=== PATIENT | female | born 1950 | race Caucasian/White ===

== ENCOUNTER 2016-06-23 16:57 | Emergency (ER) | payer MEDICARE ==
--- NOTE | 2016-06-23 18:09 | DIAGNOSTIC IMAGING REPORT ---
PROCEDURE: XR CHEST 1 VIEW INDICATION: CHEST PAIN TECHNIQUE: Portable AP view 05:33 p.m. COMPARISON: Chest x-ray 02/24/2013. FINDINGS: Lungs are clear. Heart and mediastinum are normal. Left shoulder arthroplasty. IMPRESSION: 1. Negative chest.
--- NOTE | 2016-06-23 20:28 | ED NURSING NOTES ---
Clinical Report - Nurses [facility] [address] [place] [address] 06/23/2016 17:03 Patient: JAS ALEMAN TRIAGE Triage time 1751 PM. Acuity: LEVEL 2. Chief Complaint: CHEST PAIN and DISCOMFORT. Alert. No acute distress. ANISA COMA SCORE: Anisa Coma Scale: 15- eyes open spontaneously (4); best verbal response- oriented x 4 (5); best motor response- obeys commands (6). --17:21 Norma Coelho R.N. 17:06 06/23/16. BP: 159/75 (regular adult cuff) taken on the right arm, via an automated monitor, while lying. HR: 71. RR: 16. O2 saturation: 96%. Temp: 98.6 F (oral). Pain level now: 07/31. --17:21 Norma Coelho R.N. Weight: 87.9 kg stated. Height/Length: 62 inches Per Patient. BMI: 35.5. --17:08 Norma Coelho R.N. Medications Multivitamins Oral. Omeprazole Oral. --17:09 Norma Coelho R.N. Aspirin Oral. --17:20 Norma Coelho R.N. Calcium + D Oral. --18:19 Norma Coelho R.N. Neurontin Oral. --18:20 Norma Coelho R.N. Simvastatin Oral. --18:20 Norma Coelho R.N. The following entry was struck by Norma Coelho R.N., 18:19 (06/23/16) Reason - other. <<STRICKEN ENTRY-- HydrOXYzine HCl Oral, 4x a day as needed. --17:09 Norma Coelho R.N. --END STRIKE>>. Allergies Darvon. Morphine Sulfate. Shrimp. --17:09 Norma Coelho R.N. Medication/allergy information source: the patient. --17:21 Norma Coelho R.N. History Arrived by private vehicle. Historian: patient and family. Accompanied by family. Primary physician (Dr. Lisa). ( Pt states that has been feeling "chest pain for the past 2- 3 weeks, comes and goes with SOB and heavy feeling in my arms and my body" Today at around 2 pm it started again more "pressure like in my mid chest and has continued, this time around hurts more than the other times" did experience some dizziness yesterday. Pt denies fevers, cough, being sick. Here for further evaluation). This is a recurrent problem. Symptoms are intermittent and still present (2- 3 weeks). She has had difficulty breathing. No sweating episodes, nausea, vomiting, fever or cough. 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 PAST MEDICAL HX: Immunizations: up-to-date. The patient has had a hysterectomy. SOCIAL HX: Former smoker, end date 1988. No alcohol use or drug use. No infectious disease exposure. ABUSE ASSESSMENT: No report of abuse. SELF HARM ASSESSMENT: A self harm assessment was performed. The patient answered "no" to the question "Do you have thoughts of harming or killing yourself?" and "Have you recently had thoughts about harming or killing others?". FALL RISK ASSESSMENT: Fall risk assessment completed. No fall risk identified. NUTRITIONAL RISK ASSESSMENT: The nutritional risk assessment revealed no deficiencies. FUNCTIONAL ASSESSMENT: Functional assessment: no impairments noted. LEARNING NEEDS ASSESSMENT: The learning needs assessment revealed no barriers. SKIN INTEGRITY ASSESSMENT: Skin integrity risk assessment completed. No skin integrity risk identified. --17:21 Norma Coelho R.N. PROBLEMS: Depression. Reflux. --17:12 Norma Coelho R.N. ADDITIONAL SURGERIES: Appendectomy. Cholecystectomy. Hysterectomy. --17:12 Norma Coelho R.N. Shoulder Surgery. --17:20 Norma Coelho R.N. Interventions ID band on patient. --17:21 Norma Coelho R.N. PHYSICAL ASSESSMENT To room via wheelchair. GENERAL / NEURO / PSYCH: Alert. Oriented X 4. HEENT: Mucous membranes are pink. RESPIRATORY: Respirations not labored. Chest nontender. Breath sounds within normal limits. CVS: Heart sounds within normal limits. Pulses within normal limits. Capillary refill less than 2 seconds. GI / : Abdomen soft and nontender. EXTREMITIES: No lower extremity edema. SKIN: Skin is warm and dry. Normal skin turgor. Skin is non-tender. --17:23 Norma Coelho R.N. NURSING PROGRESS NOTES 17:18 06/23/2016 Site #1 started via IV in the right antecubital space with an 20g angiocath; one attempt. Blood drawn: rainbow set. Labeled in the presence of the patient and sent to the lab. --17:23 Norma Coelho R.N. The initial plan of care for this patient has been created This plan of care was discussed with the patient and family. tread cutter, pulse oximeter and NIBP monitor placed on patient. Patient ID band checked for patient name and birthdate: patient confirmed. Blood samples drawn from the right antecubital space IV site by nurse per protocol ; labeled in presence of the patient and sent to lab: rainbow set. Patient gowned. Warming measures: blanket applied. Reassurance given. Two patient identifiers checked. Call light placed in reach. Side rails up x 1. Bed placed in lowest position. Brakes of bed on. --17:24 Norma Coelho R.N. EKG time: (1707 PM). EKG was performed by a tech and shown to the ED physician. --17:29 Norma Coelho R.N. Cardiac rhythm: normal sinus rhythm. tread cutter, pulse oximeter and NIBP monitor placed on patient. Reassurance given. The patient is calm and resting quietly. RESPIRATORY: Denies difficulty breathing. Call light placed in reach. Side rails up. --17:52 Norma Coelho R.N. 17:30 06/23/16. BP: 144/59. HR: 74. RR: 14 (regular and unlabored). O2 saturation: 94%. Pain level now: 6/10. --17:52 Norma Coelho R.N. 18:00 06/23/16. BP: 132/67. HR: 73. RR: 20. O2 saturation: 99%. Pain level now: 0/10. --18:21 Norma Coelho R.N. Cardiac rhythm: normal sinus rhythm. tread cutter, pulse oximeter and NIBP monitor placed on patient. Reassurance given. The patient is calm and resting quietly. Overall patient status is improved- she states feels better. RESPIRATORY: Denies difficulty breathing. CVS: Denies chest pain. Two patient identifiers checked. Call light placed in reach. Bed placed in lowest position. --18:21 Norma Coelho R.N. 19:23 06/23/16. BP: 153/82. HR: 71. RR: 14. O2 saturation: 96%. Pain level now: 0/10. --19:25 Norma Coelho R.N. Cardiac rhythm: sinus tachycardia. tread cutter, pulse oximeter and NIBP monitor placed on patient. Reassurance given. ( Pt is having episodes of SVT, MD Joel aware, pt asymptomatic, denies any CP or SOB. Will monitor). Call light placed in reach. --19:25 Norma Coelho R.N. 20:49 06/23/2016 Metoprolol PO Capsules 25 mg given. Allergies verified and confirmed 5 rights. --20:49 Norma Coelho R.N. DISPOSITION / DISCHARGE 20:36 06/23/2016 Site #1 removed upon discharge. Catheter intact. Manual pressure, pressure dressing, bandaid and bandage applied. --20:51 Norma Coelho R.N. Cardiac rhythm: normal sinus rhythm. Departure time: 2055 PM. Condition at departure: improved and stable. The goals identified in the patient's plan of care were met. No learning barriers present. Discharge instructions provided and reviewed with the patient. Reviewed medication(s) side effects, precautions, dosing and course information. Prescription(s) given to the patient. Patient verbalized understanding. Written instructions provided in Tajik. The patient was discharged by the physician. She was discharged home and accompanied by spouse. She left the Emergency Department ambulatory and via private vehicle. Spouse driving. FALL RISK ASSESSMENT: Fall risk assessment completed. No fall risk identified. --20:53 Norma Coelho R.N. 20:45 06/23/16. BP: 116/54. HR: 87. RR: 14. O2 saturation: 97%. Temp: 98.3 F (oral). Pain level now: 0/10. --20:53 Norma Coelho R.N. Locked/Released at 06/23/2016 22:40 by Norma Coelho R.N.
--- NOTE | 2016-06-23 20:28 | ED NURSING NOTES ---
Clinical Report - Nurses [facility] [address] [place] [address] 06/23/2016 17:03 Patient: JAS ALEMAN TRIAGE Triage time 1751 PM. Acuity: LEVEL 2. Chief Complaint: CHEST PAIN and DISCOMFORT. Alert. No acute distress. ANISA COMA SCORE: Anisa Coma Scale: 15- eyes open spontaneously (4); best verbal response- oriented x 4 (5); best motor response- obeys commands (6). --17:21 Norma Coelho R.N. 17:06 06/23/16. BP: 159/75 (regular adult cuff) taken on the right arm, via an automated monitor, while lying. HR: 71. RR: 16. O2 saturation: 96%. Temp: 98.6 F (oral). Pain level now: 07/31. --17:21 Norma Coelho R.N. Weight: 87.9 kg stated. Height/Length: 62 inches Per Patient. BMI: 35.5. --17:08 Norma Coelho R.N. Medications Multivitamins Oral. Omeprazole Oral. --17:09 Norma Coelho R.N. Aspirin Oral. --17:20 Norma Coelho R.N. Calcium + D Oral. --18:19 Norma Coelho R.N. Neurontin Oral. --18:20 Norma Coelho R.N. Simvastatin Oral. --18:20 Norma Coelho R.N. The following entry was struck by Norma Coelho R.N., 18:19 (06/23/16) Reason - other. <<STRICKEN ENTRY-- HydrOXYzine HCl Oral, 4x a day as needed. --17:09 Norma Coelho R.N. --END STRIKE>>. Allergies Darvon. Morphine Sulfate. Shrimp. --17:09 Norma Coelho R.N. Medication/allergy information source: the patient. --17:21 Norma Coelho R.N. History Arrived by private vehicle. Historian: patient and family. Accompanied by family. Primary physician (Dr. Lisa). ( Pt states that has been feeling "chest pain for the past 2- 3 weeks, comes and goes with SOB and heavy feeling in my arms and my body" Today at around 2 pm it started again more "pressure like in my mid chest and has continued, this time around hurts more than the other times" did experience some dizziness yesterday. Pt denies fevers, cough, being sick. Here for further evaluation). This is a recurrent problem. Symptoms are intermittent and still present (2- 3 weeks). She has had difficulty breathing. No sweating episodes, nausea, vomiting, fever or cough. 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 PAST MEDICAL HX: Immunizations: up-to-date. The patient has had a hysterectomy. SOCIAL HX: Former smoker, end date 1988. No alcohol use or drug use. No infectious disease exposure. ABUSE ASSESSMENT: No report of abuse. SELF HARM ASSESSMENT: A self harm assessment was performed. The patient answered "no" to the question "Do you have thoughts of harming or killing yourself?" and "Have you recently had thoughts about harming or killing others?". FALL RISK ASSESSMENT: Fall risk assessment completed. No fall risk identified. NUTRITIONAL RISK ASSESSMENT: The nutritional risk assessment revealed no deficiencies. FUNCTIONAL ASSESSMENT: Functional assessment: no impairments noted. LEARNING NEEDS ASSESSMENT: The learning needs assessment revealed no barriers. SKIN INTEGRITY ASSESSMENT: Skin integrity risk assessment completed. No skin integrity risk identified. --17:21 Norma Coelho R.N. PROBLEMS: Depression. Reflux. --17:12 Norma Coelho R.N. ADDITIONAL SURGERIES: Appendectomy. Cholecystectomy. Hysterectomy. --17:12 Norma Coelho R.N. Shoulder Surgery. --17:20 Norma Coelho R.N. Interventions ID band on patient. --17:21 Norma Coelho R.N. PHYSICAL ASSESSMENT To room via wheelchair. GENERAL / NEURO / PSYCH: Alert. Oriented X 4. HEENT: Mucous membranes are pink. RESPIRATORY: Respirations not labored. Chest nontender. Breath sounds within normal limits. CVS: Heart sounds within normal limits. Pulses within normal limits. Capillary refill less than 2 seconds. GI / : Abdomen soft and nontender. EXTREMITIES: No lower extremity edema. SKIN: Skin is warm and dry. Normal skin turgor. Skin is non-tender. --17:23 Norma Coelho R.N. NURSING PROGRESS NOTES 17:18 06/23/2016 Site #1 started via IV in the right antecubital space with an 20g angiocath; one attempt. Blood drawn: rainbow set. Labeled in the presence of the patient and sent to the lab. --17:23 Norma Coelho R.N. The initial plan of care for this patient has been created This plan of care was discussed with the patient and family. radiation monitor, pulse oximeter and NIBP monitor placed on patient. Patient ID band checked for patient name and birthdate: patient confirmed. Blood samples drawn from the right antecubital space IV site by nurse per protocol ; labeled in presence of the patient and sent to lab: rainbow set. Patient gowned. Warming measures: blanket applied. Reassurance given. Two patient identifiers checked. Call light placed in reach. Side rails up x 1. Bed placed in lowest position. Brakes of bed on. --17:24 Norma Coelho R.N. EKG time: (1707 PM). EKG was performed by a tech and shown to the ED physician. --17:29 Norma Coelho R.N. Cardiac rhythm: normal sinus rhythm. radiation monitor, pulse oximeter and NIBP monitor placed on patient. Reassurance given. The patient is calm and resting quietly. RESPIRATORY: Denies difficulty breathing. Call light placed in reach. Side rails up. --17:52 Norma Coelho R.N. 17:30 06/23/16. BP: 144/59. HR: 74. RR: 14 (regular and unlabored). O2 saturation: 94%. Pain level now: 6/10. --17:52 Norma Coelho R.N. 18:00 06/23/16. BP: 132/67. HR: 73. RR: 20. O2 saturation: 99%. Pain level now: 0/10. --18:21 Norma Coelho R.N. Cardiac rhythm: normal sinus rhythm. radiation monitor, pulse oximeter and NIBP monitor placed on patient. Reassurance given. The patient is calm and resting quietly. Overall patient status is improved- she states feels better. RESPIRATORY: Denies difficulty breathing. CVS: Denies chest pain. Two patient identifiers checked. Call light placed in reach. Bed placed in lowest position. --18:21 Norma Coelho R.N. 19:23 06/23/16. BP: 153/82. HR: 71. RR: 14. O2 saturation: 96%. Pain level now: 0/10. --19:25 Norma Coelho R.N. Cardiac rhythm: sinus tachycardia. radiation monitor, pulse oximeter and NIBP monitor placed on patient. Reassurance given. ( Pt is having episodes of SVT, MD Joel aware, pt asymptomatic, denies any CP or SOB. Will monitor). Call light placed in reach. --19:25 Norma Coelho R.N. 20:49 06/23/2016 Metoprolol PO Capsules 25 mg given. Allergies verified and confirmed 5 rights. --20:49 Norma Coelho R.N. DISPOSITION / DISCHARGE 20:36 06/23/2016 Site #1 removed upon discharge. Catheter intact. Manual pressure, pressure dressing, bandaid and bandage applied. --20:51 Norma Coelho R.N. Cardiac rhythm: normal sinus rhythm. Departure time: 2055 PM. Condition at departure: improved and stable. The goals identified in the patient's plan of care were met. No learning barriers present. Discharge instructions provided and reviewed with the patient. Reviewed medication(s) side effects, precautions, dosing and course information. Prescription(s) given to the patient. Patient verbalized understanding. Written instructions provided in Faroese. The patient was discharged by the physician. She was discharged home and accompanied by spouse. She left the Emergency Department ambulatory and via private vehicle. Spouse driving. FALL RISK ASSESSMENT: Fall risk assessment completed. No fall risk identified. --20:53 Norma Coelho R.N. 20:45 06/23/16. BP: 116/54. HR: 87. RR: 14. O2 saturation: 97%. Temp: 98.3 F (oral). Pain level now: 0/10. --20:53 Norma Coelho R.N. Locked/Released at 06/23/2016 22:40 by Norma Coelho R.N.
--- NOTE | 2016-06-23 20:28 | ED ORDER SUMMARY ---
..... Patient: JAS ALEMAN OrderSheet [facility] VisitID: [id number] [place] [address] 66y, F Registration Date/Time: 06/23/2016 ORDER SHEET Weight: 87.9 kg (stated) Allergies: Darvon, Morphine Sulfate, Shrimp GENERAL ORDERS: Chest 1V Urgent (17:25 06/23/2016 EHassan R.N. per protocol) (Ack 17:27 KHoerner) (17:45 EHassan R.N.) Termite Exterminator (Continuous) (17:06/23/2016 EHassan R.N. per protocol) (17:28 EHassan R.N.) UA-Culture if indicated Urgent (17:25 06/23/2016 EHassan R.N. per protocol) (Ack 17:27 KHoerner) (18:45 EHassan R.N.) Cardiac Panel Stat (17:25 06/23/2016 EHassan R.N. per protocol) (Ack 17:27 KHoerner) (17:28 EHassan R.N.) Pulse oximeter (17:25 06/23/2016 EHassan R.N. per protocol) (17:28 EHassan R.N.) EKG - ER Stat (17:25 06/23/2016 EHassan R.N. per protocol) (Ack 17:27 KHoerner) (17:27 KHoerner) NPO (17:25 06/23/2016 EHassan R.N. per protocol) (17:28 EHassan R.N.) D-Dimer Urgent (17:41 06/23/2016 EHassan R.N. per protocol) (Ack 17:45 KHoerner) (17:45 EHassan R.N.) MEDICATION ORDERS: Metoprolol PO 25 mg (HIGH ALERT MEDICATION, NOW) (20:22 06/23/2016 Ashley JALLOH) (20:49 EHassan R.N.) IV FLUIDS: IV Saline Lock (17:25 06/23/2016 EHassan R.N. per protocol) (17:28 EHassan R.N.) ORDER SHEET NOTES: [Electronically signed by Magalie Joel MD (21:51 06/23/2016)] [Electronically signed by Norma Coelho R.N. (22:40 06/23/2016)] [Electronically locked/signed by Norma Coelho R.N. (22:40 06/23/2016)]
--- NOTE | 2016-06-23 20:28 | ED CLINICAL REPORT ---
Clinical Report - Physicians/Mid Levels [facility] [address] [place] [address] 06/23/2016 17:03 Patient: JAS ALEMAN Time Seen: 17:09. Arrived- By private vehicle. Historian- patient. HISTORY OF PRESENT ILLNESS Chief Complaint: CHEST PAIN. At its maximum, severity described as moderate. When seen in the E.D., severity described as moderate. Modifying factors- (patient states that the symptoms lasted about 3-4 minutes and improved to complete resolution after she drank a glass of water. Patient has no history of cardiac issues. She has been having shorter episodes of the pain over about the last month. She states that the episodes are not necessarily related to anything in particular. Patient has also noticed occasional episodes ofa fluttering, fast heartbeat that last a few seconds.). It is described as pressure and "pain" and it is described as located in the right chest, central chest and left chest area. This started today and is now gone. Onset during Pt was standing at the window with a friend, looking at calabrese. No nausea, vomiting, difficulty breathing or diaphoresis. (Patient states she had a negative stress test about 3 or 4 years ago. Patient states her episode of chest pain started at about 2:00 this afternoon.). Similar symptoms previously: Recent medical care: Not recently seen/assessed. REVIEW OF SYSTEMS No fever, chills, cough, pedal edema or calf pain. No fainting episodes, headache, sore throat, blurred vision or abdominal pain. No black stools, difficulty with urination, skin rash, enlarged lymph nodes or joint pain. No bloody stools. All systems otherwise negative, except as recorded above. PAST HISTORY Problems: Depression. Immunizations. LNMP - Last Normal Menstrual Period. Reflux. Additional Surgeries: Appendectomy. Cholecystectomy. Hysterectomy. Shoulder Surgery. Medications: Simvastatin Oral. Neurontin Oral. Calcium + D Oral. Aspirin Oral. Multivitamins Oral. Omeprazole Oral. Allergies: Darvon. Morphine Sulfate. Shrimp. SOCIAL HISTORY Never smoker. No alcohol use or drug use. FAMILY HISTORY No history of heart disease. ADDITIONAL NOTES The nursing notes have been reviewed. PHYSICAL EXAM Vital Signs: 06/23/2016 17:06 BP: 159/75. HR: 71. RR: 16. O2 saturation: 96%. Temp: 98.6 F. Pain level now: 07/31. Have been reviewed. Appearance: Alert. Oriented X3. No acute distress. Eyes: Pupils equal, round and reactive to light. Eyes normal inspection. ENT: Nose normal. Neck: Normal inspection. CVS: Normal heart rate and rhythm. Heart sounds normal. Pulses normal. Respiratory: No respiratory distress. Breath sounds normal. Abdomen: Soft and nontender. Back: Normal external inspection. Skin: Skin warm and dry. Normal skin color. No rash. Normal skin turgor. Extremities: Extremities exhibit normal ROM. No lower extremity edema. Neuro: Oriented X 3. No motor deficit. No sensory deficit. LABS, X-RAYS, AND EKG EKG: EKG time: (1707). No acute process. No acute ischemia. Normal EKG. Normal sinus rhythm. Rate: 74. Normal P waves. Normal KAYLEIGH. Normal QRS complex. Normal axis. Normal ST and T waves, QT and QTc. Prior EKG unavailable. The study has been interpreted contemporaneously by me. The study has been independently viewed by me. The EKG appears to be a good tracing. I agree with and confirm the computer reading of the EKG. Rhythm Strip #1: Time: (1705). Rate= 75. Normal sinus rhythm. Regular rhythm. Narrow QRS complexes. No ectopy. Conduction normal. Normal ST segments and T waves. The study was interpreted by me. Chest X-ray: No acute disease. Normal lung markings present. Normal heart size. Mediastinum normal. Great vessels normal. Soft tissues normal. No infiltrate. No fracture. No bony lesion present. Views: AP (portable). Technique: good. The X-rays were independently viewed by me, interpreted by the radiologist and contemporaneously by me and discussed with the radiologist. Prior films were not available for comparison. Laboratory Tests: CBC w Diff: (ELISSA: 06/23/2016 17:05) ( MsgRcvd 06/23/2016 17:39) Final results Test Result Flag Units (Reference) WHITE BLOOD COUNT 5.0 K/uL (4.5-11.5) RED BLOOD COUNT 4.28 M/uL (4.00-5.20) HEMOGLOBIN 13.5 gm/dL (12.0-16.0) HEMATOCRIT 39.9 % (36.0-46.0) MEAN CELL VOLUME 93 fL (80-100) MEAN CORPUSCULAR HGB 32 pg (26-34) MEAN CORPUSCULAR HGB CONC 34 g/dL (31-37) RED CELL DISTRIBUTION WIDTH 12.8 % (11.6-14.8) PLATELET COUNT 212 K/uL (150-400) NEUTROPHIL % 56.6 % (50-75) LYMPH % 30.5 % (25-40) MONO % 10.5 % (3-14) EOSINOPHIL % 2.0 % (0-4) BASOPHIL % 0.4 % (0-2) [id number]: (ELISSA: 06/23/2016 17:05) ( MsgRcvd 06/23/2016 17:55) Final results Test Result Flag Units (Reference) D-DIMER QUANTITATIVE 0.44 ug/mLFEU (0.27-0.52) The primary value of this quantitative assay relates toits negative predictive value (i.e. exclusion) of pulmonaryembolism/deep vein thrombosis/DIC.Elevated levels of d-dimer may also occur with:, age, cancer, inflammation, liver disease,post-op, infection, hematoma, coronary disease, peripheralarteriopathy, bleeding disorders and thrombolytic treatment.Results should be correlated with other clinical andradiological data.Testing Methodology: Latex Immunoassay CHEM 13 PANEL: (ELISSA: 06/23/2016 17:05) ( MsgRcvd 06/23/2016 17:44) Final results Test Result Flag Units (Reference) GLUCOSE 93 mg/dL (70-110) BUN 17 mg/dL (7-18) CREATININE 0.9 mg/dL (0.6-1.3) Estimated GFR >60 mL/min Estimated GFR- >60 mL/min Note: Persistent reduction over 3 months in eGFR<60 mL/min/1.73 m2 defines CKD. Patients with eGFR values>=60 mL/min/1.73 m2 may also have CKD if evidence ofpersistent proteinuria. Additional information may be foundat www.kidney.org. SODIUM 142 mmol/L (136-145) POTASSIUM 4.2 mmol/L (3.5-5.1) CHLORIDE 103 mmol/L (98-107) CARBON DIOXIDE 28 mmol/L (21-32) CALCIUM 9.5 mg/dL (8.5-10.1) TOTAL PROTEIN 8.2 g/dL (6.4-8.2) ALBUMIN 4.2 g/dL (3.3-5.0) BILIRUBIN, TOTAL 0.4 mg/dL (0.0-1.0) ALKALINE PHOSPHATASE 59 U/L (46-116) AST (SGOT) 30 U/L (15-37) ALT (SGPT) 31 U/L (12-78) CPK 74 U/L (24-260) MAGNESIUM 1.9 mg/dL (1.8-2.4) TROPONIN I <0.05 L ng/mL (0.00-1.5) TROPONIN REFERENCE RANGE:<0.1 NEGATIVE0.1-1.5 INDETERMINANT>1.5 POSITIVE . Pulse Oximetry: 06/23/2016 17:06 O2 saturation: 96%. (FIO2 - room air). Interpretation: normal. PROGRESS AND PROCEDURES Course of Care: patient was worked up for her symptoms with an EKG chest x-ray and laboratory studies. All of the above were unremarkable. Patient was chest pain-free in the emergency department and had been for several hours. I did not feel that it was likely that the patient had had an MO in that short period of time in which she had chest pain; however I did feel that it was very important that the patient have a stress test in an expedited fashion. We did speak about the possibility of my calling jewelry sales representative versus the patient seen Dr. Dorantes who is her primary care physician and who can generally get the patient in to be seen within a day or 2. Patient did state she preferred to see Dr. Dorantes and initially. While I was speaking with the patient in her room she did have several episodes of narrow complex tachycardia lasting 2-3 seconds each. I did give the patient the option of admission to the hospital for observation and monitoring, during which time she could likely have stress test done tomorrow as well. However, the patient stated that she preferred to go home. I did feel that this was an acceptable alternative, given that the patient is minimally symptomatic with the episodes. Patient was given a dose of metoprolol in the emergency department. She was also given a prescription for metoprolol to take at home as needed. Patient and spouse counseled in person regarding the patient's stable condition, test results, diagnosis and need for follow-up. Old medical records reviewed. Disposition: Discharged. Condition: stable. CLINICAL IMPRESSION Chest pain characterized as "pressure" .12 lead EKG performed. New onset paroxysmal supraventricular tachycardia. INSTRUCTIONS (Your labs look good tonight. There is no evidence of heart attack today; however, it is possible you have angina, which is a precursor to a heart attack. As such it is very important that you follow up withDr. Lisa tomorrow to have a stress test scheduled. You have also been found to have short runs of SVT. If you continue to have frequent runs of SVT, you may need to see a jewelry sales representative to determine why this is become a problem and whether anything further is to be done about it. At this point in time, if you're having multiple episodes of SVT, or longer lasting episodes, you may take a dose of metoprolol to help control this. If you have any further problems, more severe chest pain, or fast heartbeat that persists for more than 10 minutes he should come to the emergency department without delay.). Warnings: Further evaluation is necessary. It is very important to follow up with a physician. GENERAL WARNINGS: Return or contact your physician immediately if your condition worsens or changes unexpectedly, if not improving as expected, or if other problems arise. Your Current Medications: CONTINUE TAKING THE FOLLOWING MEDICATIONS: Aspirin Oral. Calcium + D Oral. Multivitamins Oral. Neurontin Oral. Omeprazole Oral. Simvastatin Oral. Prescription Medications: Metoprolol 25 mg: take 1-2 orally every 12 hours. Dispense thirty (30). No refills. (prn palpitations) Understanding of the discharge instructions verbalized by patient and family. Follow-up with: Hayes Lisa MD, [facility], , [address] [facility] [address] Follow up tomorrow. Call for an appointment. Reason for referral: Follow up ER visit for chest pain and fast heart beat. (Electronically signed by Magalie Joel MD 06/23/2016 21:51)
--- NOTE | 2016-06-23 20:28 | ED ORDER SUMMARY ---
..... Patient: JAS ALEMAN OrderSheet [facility] VisitID: [id number] [place] [address] 66y, F Registration Date/Time: 06/23/2016 ORDER SHEET Weight: 87.9 kg (stated) Allergies: Darvon, Morphine Sulfate, Shrimp GENERAL ORDERS: Chest 1V Urgent (17:25 06/23/2016 EHassan R.N. per protocol) (Ack 17:27 KHoerner) (17:45 EHassan R.N.) Manager Of International (Continuous) (17:06/23/2016 EHassan R.N. per protocol) (17:28 EHassan R.N.) UA-Culture if indicated Urgent (17:25 06/23/2016 EHassan R.N. per protocol) (Ack 17:27 KHoerner) (18:45 EHassan R.N.) Cardiac Panel Stat (17:25 06/23/2016 EHassan R.N. per protocol) (Ack 17:27 KHoerner) (17:28 EHassan R.N.) Pulse oximeter (17:25 06/23/2016 EHassan R.N. per protocol) (17:28 EHassan R.N.) EKG - ER Stat (17:25 06/23/2016 EHassan R.N. per protocol) (Ack 17:27 KHoerner) (17:27 KHoerner) NPO (17:25 06/23/2016 EHassan R.N. per protocol) (17:28 EHassan R.N.) D-Dimer Urgent (17:41 06/23/2016 EHassan R.N. per protocol) (Ack 17:45 KHoerner) (17:45 EHassan R.N.) MEDICATION ORDERS: Metoprolol PO 25 mg (HIGH ALERT MEDICATION, NOW) (20:22 06/23/2016 Ashley JALLOH) (20:49 EHassan R.N.) IV FLUIDS: IV Saline Lock (17:25 06/23/2016 EHassan R.N. per protocol) (17:28 EHassan R.N.) ORDER SHEET NOTES: [Electronically signed by Magalie Joel MD (21:51 06/23/2016)] [Electronically signed by Norma Coelho R.N. (22:40 06/23/2016)] [Electronically locked/signed by Norma Coelho R.N. (22:40 06/23/2016)]
--- NOTE | 2016-06-23 20:28 | ED CLINICAL REPORT ---
Clinical Report - Physicians/Mid Levels [facility] [address] [place] [address] 06/23/2016 17:03 Patient: JAS ALEMAN Time Seen: 17:09. Arrived- By private vehicle. Historian- patient. HISTORY OF PRESENT ILLNESS Chief Complaint: CHEST PAIN. At its maximum, severity described as moderate. When seen in the E.D., severity described as moderate. Modifying factors- (patient states that the symptoms lasted about 3-4 minutes and improved to complete resolution after she drank a glass of water. Patient has no history of cardiac issues. She has been having shorter episodes of the pain over about the last month. She states that the episodes are not necessarily related to anything in particular. Patient has also noticed occasional episodes ofa fluttering, fast heartbeat that last a few seconds.). It is described as pressure and "pain" and it is described as located in the right chest, central chest and left chest area. This started today and is now gone. Onset during Pt was standing at the window with a friend, looking at calabrese. No nausea, vomiting, difficulty breathing or diaphoresis. (Patient states she had a negative stress test about 3 or 4 years ago. Patient states her episode of chest pain started at about 2:00 this afternoon.). Similar symptoms previously: Recent medical care: Not recently seen/assessed. REVIEW OF SYSTEMS No fever, chills, cough, pedal edema or calf pain. No fainting episodes, headache, sore throat, blurred vision or abdominal pain. No black stools, difficulty with urination, skin rash, enlarged lymph nodes or joint pain. No bloody stools. All systems otherwise negative, except as recorded above. PAST HISTORY Problems: Depression. Immunizations. LNMP - Last Normal Menstrual Period. Reflux. Additional Surgeries: Appendectomy. Cholecystectomy. Hysterectomy. Shoulder Surgery. Medications: Simvastatin Oral. Neurontin Oral. Calcium + D Oral. Aspirin Oral. Multivitamins Oral. Omeprazole Oral. Allergies: Darvon. Morphine Sulfate. Shrimp. SOCIAL HISTORY Never smoker. No alcohol use or drug use. FAMILY HISTORY No history of heart disease. ADDITIONAL NOTES The nursing notes have been reviewed. PHYSICAL EXAM Vital Signs: 06/23/2016 17:06 BP: 159/75. HR: 71. RR: 16. O2 saturation: 96%. Temp: 98.6 F. Pain level now: 07/31. Have been reviewed. Appearance: Alert. Oriented X3. No acute distress. Eyes: Pupils equal, round and reactive to light. Eyes normal inspection. ENT: Nose normal. Neck: Normal inspection. CVS: Normal heart rate and rhythm. Heart sounds normal. Pulses normal. Respiratory: No respiratory distress. Breath sounds normal. Abdomen: Soft and nontender. Back: Normal external inspection. Skin: Skin warm and dry. Normal skin color. No rash. Normal skin turgor. Extremities: Extremities exhibit normal ROM. No lower extremity edema. Neuro: Oriented X 3. No motor deficit. No sensory deficit. LABS, X-RAYS, AND EKG EKG: EKG time: (1707). No acute process. No acute ischemia. Normal EKG. Normal sinus rhythm. Rate: 74. Normal P waves. Normal KAYLEIGH. Normal QRS complex. Normal axis. Normal ST and T waves, QT and QTc. Prior EKG unavailable. The study has been interpreted contemporaneously by me. The study has been independently viewed by me. The EKG appears to be a good tracing. I agree with and confirm the computer reading of the EKG. Rhythm Strip #1: Time: (1705). Rate= 75. Normal sinus rhythm. Regular rhythm. Narrow QRS complexes. No ectopy. Conduction normal. Normal ST segments and T waves. The study was interpreted by me. Chest X-ray: No acute disease. Normal lung markings present. Normal heart size. Mediastinum normal. Great vessels normal. Soft tissues normal. No infiltrate. No fracture. No bony lesion present. Views: AP (portable). Technique: good. The X-rays were independently viewed by me, interpreted by the radiologist and contemporaneously by me and discussed with the radiologist. Prior films were not available for comparison. Laboratory Tests: CBC w Diff: (ELISSA: 06/23/2016 17:05) ( MsgRcvd 06/23/2016 17:39) Final results Test Result Flag Units (Reference) WHITE BLOOD COUNT 5.0 K/uL (4.5-11.5) RED BLOOD COUNT 4.28 M/uL (4.00-5.20) HEMOGLOBIN 13.5 gm/dL (12.0-16.0) HEMATOCRIT 39.9 % (36.0-46.0) MEAN CELL VOLUME 93 fL (80-100) MEAN CORPUSCULAR HGB 32 pg (26-34) MEAN CORPUSCULAR HGB CONC 34 g/dL (31-37) RED CELL DISTRIBUTION WIDTH 12.8 % (11.6-14.8) PLATELET COUNT 212 K/uL (150-400) NEUTROPHIL % 56.6 % (50-75) LYMPH % 30.5 % (25-40) MONO % 10.5 % (3-14) EOSINOPHIL % 2.0 % (0-4) BASOPHIL % 0.4 % (0-2) [id number]: (ELISSA: 06/23/2016 17:05) ( MsgRcvd 06/23/2016 17:55) Final results Test Result Flag Units (Reference) D-DIMER QUANTITATIVE 0.44 ug/mLFEU (0.27-0.52) The primary value of this quantitative assay relates toits negative predictive value (i.e. exclusion) of pulmonaryembolism/deep vein thrombosis/DIC.Elevated levels of d-dimer may also occur with:, age, cancer, inflammation, liver disease,post-op, infection, hematoma, coronary disease, peripheralarteriopathy, bleeding disorders and thrombolytic treatment.Results should be correlated with other clinical andradiological data.Testing Methodology: Latex Immunoassay CHEM 13 PANEL: (ELISSA: 06/23/2016 17:05) ( MsgRcvd 06/23/2016 17:44) Final results Test Result Flag Units (Reference) GLUCOSE 93 mg/dL (70-110) BUN 17 mg/dL (7-18) CREATININE 0.9 mg/dL (0.6-1.3) Estimated GFR >60 mL/min Estimated GFR- >60 mL/min Note: Persistent reduction over 3 months in eGFR<60 mL/min/1.73 m2 defines CKD. Patients with eGFR values>=60 mL/min/1.73 m2 may also have CKD if evidence ofpersistent proteinuria. Additional information may be foundat www.kidney.org. SODIUM 142 mmol/L (136-145) POTASSIUM 4.2 mmol/L (3.5-5.1) CHLORIDE 103 mmol/L (98-107) CARBON DIOXIDE 28 mmol/L (21-32) CALCIUM 9.5 mg/dL (8.5-10.1) TOTAL PROTEIN 8.2 g/dL (6.4-8.2) ALBUMIN 4.2 g/dL (3.3-5.0) BILIRUBIN, TOTAL 0.4 mg/dL (0.0-1.0) ALKALINE PHOSPHATASE 59 U/L (46-116) AST (SGOT) 30 U/L (15-37) ALT (SGPT) 31 U/L (12-78) CPK 74 U/L (24-260) MAGNESIUM 1.9 mg/dL (1.8-2.4) TROPONIN I <0.05 L ng/mL (0.00-1.5) TROPONIN REFERENCE RANGE:<0.1 NEGATIVE0.1-1.5 INDETERMINANT>1.5 POSITIVE . Pulse Oximetry: 06/23/2016 17:06 O2 saturation: 96%. (FIO2 - room air). Interpretation: normal. PROGRESS AND PROCEDURES Course of Care: patient was worked up for her symptoms with an EKG chest x-ray and laboratory studies. All of the above were unremarkable. Patient was chest pain-free in the emergency department and had been for several hours. I did not feel that it was likely that the patient had had an DC in that short period of time in which she had chest pain; however I did feel that it was very important that the patient have a stress test in an expedited fashion. We did speak about the possibility of my calling nuclear waste management engineer versus the patient seen Dr. Dorantes who is her primary care physician and who can generally get the patient in to be seen within a day or 2. Patient did state she preferred to see Dr. Dorantes and initially. While I was speaking with the patient in her room she did have several episodes of narrow complex tachycardia lasting 2-3 seconds each. I did give the patient the option of admission to the hospital for observation and monitoring, during which time she could likely have stress test done tomorrow as well. However, the patient stated that she preferred to go home. I did feel that this was an acceptable alternative, given that the patient is minimally symptomatic with the episodes. Patient was given a dose of metoprolol in the emergency department. She was also given a prescription for metoprolol to take at home as needed. Patient and spouse counseled in person regarding the patient's stable condition, test results, diagnosis and need for follow-up. Old medical records reviewed. Disposition: Discharged. Condition: stable. CLINICAL IMPRESSION Chest pain characterized as "pressure" .12 lead EKG performed. New onset paroxysmal supraventricular tachycardia. INSTRUCTIONS (Your labs look good tonight. There is no evidence of heart attack today; however, it is possible you have angina, which is a precursor to a heart attack. As such it is very important that you follow up withDr. Lisa tomorrow to have a stress test scheduled. You have also been found to have short runs of SVT. If you continue to have frequent runs of SVT, you may need to see a nuclear waste management engineer to determine why this is become a problem and whether anything further is to be done about it. At this point in time, if you're having multiple episodes of SVT, or longer lasting episodes, you may take a dose of metoprolol to help control this. If you have any further problems, more severe chest pain, or fast heartbeat that persists for more than 10 minutes he should come to the emergency department without delay.). Warnings: Further evaluation is necessary. It is very important to follow up with a physician. GENERAL WARNINGS: Return or contact your physician immediately if your condition worsens or changes unexpectedly, if not improving as expected, or if other problems arise. Your Current Medications: CONTINUE TAKING THE FOLLOWING MEDICATIONS: Aspirin Oral. Calcium + D Oral. Multivitamins Oral. Neurontin Oral. Omeprazole Oral. Simvastatin Oral. Prescription Medications: Metoprolol 25 mg: take 1-2 orally every 12 hours. Dispense thirty (30). No refills. (prn palpitations) Understanding of the discharge instructions verbalized by patient and family. Follow-up with: Hayes Lisa MD, [facility], , [address] [facility] [address] Follow up tomorrow. Call for an appointment. Reason for referral: Follow up ER visit for chest pain and fast heart beat. (Electronically signed by Magalie Joel MD 06/23/2016 21:51)
--- NOTE | 2016-06-23 22:40 | ED MAR SUMMARY ---
..... Medication Administration Record [facility] [address] [place] [address] Patient: JAS ALEMAN Visit ID: [id number] 66y, F Weight: 87.9 kg Height/Length: 62 in BMI: 35.5 ALLERGIES: Darvon, Morphine Sulfate, Shrimp Given 20:49 06/23/2016 Norma Coelho RJose C Medication Administered: METOPROLOL [PO], Dose: 25 mg Capsules PO. Medication Ordered: Metoprolol PO 25 mg (HIGH ALERT MEDICATION, NOW).
--- NOTE | 2016-06-23 22:40 | ED DISCHARGE INSTRUCTIONS ---
Patient: JAS ALEMAN General Instructions [facility] VisitID: [id number] [address], [place] [id number] 66y, F Registration Date/Time: 06/23/2016 Chest pain characterized as "pressure" .12 lead EKG performed. New onset paroxysmal supraventricular tachycardia. INSTRUCTIONS (Your labs look good tonight. There is no evidence of heart attack today; however, it is possible you have angina, which is a precursor to a heart attack. As such it is very important that you follow up withDr. Lisa tomorrow to have a stress test scheduled. You have also been found to have short runs of SVT. If you continue to have frequent runs of SVT, you may need to see a kids club attendant to determine why this is become a problem and whether anything further is to be done about it. At this point in time, if you're having multiple episodes of SVT, or longer lasting episodes, you may take a dose of metoprolol to help control this. If you have any further problems, more severe chest pain, or fast heartbeat that persists for more than 10 minutes he should come to the emergency department without delay.). Warnings: Further evaluation is necessary. It is very important to follow up with a physician. GENERAL WARNINGS: Return or contact your physician immediately if your condition worsens or changes unexpectedly, if not improving as expected, or if other problems arise. Your Current Medications: CONTINUE TAKING THE FOLLOWING MEDICATIONS: Aspirin Oral. Calcium + D Oral. Multivitamins Oral. Neurontin Oral. Omeprazole Oral. Simvastatin Oral. Prescription Medications: Metoprolol 25 mg: take 1-2 orally every 12 hours. Dispense thirty (30). No refills. (prn palpitations) Understanding of the discharge instructions verbalized by patient and family. Follow-up with: Hayes Lisa MD, [facility], , [address] [place], [address] Follow up tomorrow. Call for an appointment. Reason for referral: Follow up ER visit for chest pain and fast heart beat. ADDITIONAL INFORMATION Chest Pain, Uncertain Cause Chest pain can happen for a number of reasons. Sometimes the cause can not be determined. If yourcondition does not seem serious, and your pain does not appear to be coming from your heart, your doctor may recommend watching it closely. Sometimes the signs of a serious problem take more time to appear. Therefore, watch for the warning signs listed below. Home care After your visit, follow these recommendations: Rest today and avoid strenuous activity. Take any prescribed medicine as directed. Follow-up care Follow up with your doctor or this facility as instructed or if you do not start to feel better within 24 hours. Call 911 Get immediate medical attention if any of the following occur: A change in the type of pain: if it feels different, becomes more severe, lasts longer, or begins to spread into your shoulder, arm, neck, jaw or back Shortness of breath or increased pain with breathing Weakness, dizziness, or fainting Rapid heart beat Get prompt medical attention Call your doctor right away if any of the following occur: Cough with dark colored sputum (phlegm) or blood Fever of 100.4F(38C) or higher, or as directed by your health care provider Swelling, pain or redness in one leg Tachycardia:P.A.T. (P.S.V.T.) P.A.T. stands for Paroxysmal Atrial Tachycardia (also called "P.S.V.T." or "Paroxysmal Supraventricular Tachycardia"). This means "sudden onset of fast heart beating." This may feel like your heart is racing or pounding. Because of the suddenness of onset, it is often scary but is usually not a dangerous condition. Episodes may last seconds, minutes or hours. This can occur in otherwise healthy persons who have used excessive amounts of stimulants such as tobacco or caffeine (coffee, tea, cola or medicines containing caffeine). Also certain [id number]-[id number] cold & sinus remedies, as well as diet pills and some herbal supplements can over-stimulate the heart. Obviously, cocaine and amphetamine are the most powerful heart stimulants and must be avoided. Overactive thyroid and some types of heart valve disorders can also cause P.A.T. If your doctor suspects this, tests may be done to find out if this is the cause in your case. Home Care: 1) Rest today and resume your normal activities as soon as you are feeling back to normal. Sometimes a prolonged episode of P.A.T. can leave you feeling tired and weak for a while. 2) To prevent a recurrence, avoid ALL the stimulants mentioned above. If you have trouble eliminating coffee, switch to decaf. Smokers should make every effort to stop or at least switch to a filtered, low-nicotine type of cigarette while you look for a stop-smoking program. 3) If another episode of P.A.T. occurs, lie down and try to remain calm. These spells usually stop by themselves within a few minutes. Follow Up with your doctor within the week or as instructed by our staff. Get Prompt Medical Attention if any of the following occur: -- Chest, shoulder, arm, neck or back pain -- Shortness of breath -- Weakness -- Fainting or light-headedness -- Fast or pounding heartbeat that lasts over 20 minutes You have been given the following additional information: Chest Pain, Uncertain Cause Pat (P.A.T.) (Electronically signed by Magalie Joel MD 06/23/2016 21:51)
--- NOTE | 2016-06-23 22:40 | ED MED RECONCILIATION SUMMARY ---
Patient: JAS ALEMAN Medication Reconciliation Report [facility] VisitID: [id number] [place] [address] 66y, F Registration Date/Time: 06/23/2016 Weight: 87.9 kg Height/Length: 62 in. BMI: 35.5 ALLERGIES: Darvon, Morphine Sulfate, Shrimp The patient's Home Medications are listed below: CONTINUE TAKING THE FOLLOWING MEDICATIONS: Aspirin Oral Calcium + D Oral Multivitamins Oral Neurontin Oral Omeprazole Oral Simvastatin Oral The source(s) of the original Home Medication information: patient The following Medications were given to the patient in the Emergency Department: Metoprolol [PO] PO 25 mg, administered: 06/23/2016 8:49:00 PM The following Medications were prescribed to the patient: Metoprolol 25 mg: take 1-2 orally every 12 hours. Dispense thirty (30). No refills.(prn palpitations) -- Magalie Joel MD
--- NOTE | 2016-06-23 22:40 | ED MED RECONCILIATION SUMMARY ---
Patient: JAS ALEMAN Medication Reconciliation Report [facility] VisitID: [id number] [place] [address] 66y, F Registration Date/Time: 06/23/2016 Weight: 87.9 kg Height/Length: 62 in. BMI: 35.5 ALLERGIES: Darvon, Morphine Sulfate, Shrimp The patient's Home Medications are listed below: CONTINUE TAKING THE FOLLOWING MEDICATIONS: Aspirin Oral Calcium + D Oral Multivitamins Oral Neurontin Oral Omeprazole Oral Simvastatin Oral The source(s) of the original Home Medication information: patient The following Medications were given to the patient in the Emergency Department: Metoprolol [PO] PO 25 mg, administered: 06/23/2016 8:49:00 PM The following Medications were prescribed to the patient: Metoprolol 25 mg: take 1-2 orally every 12 hours. Dispense thirty (30). No refills.(prn palpitations) -- Magalie Joel MD
--- NOTE | 2016-06-23 22:40 | ED MAR SUMMARY ---
..... Medication Administration Record [facility] [address] [place] [address] Patient: JAS ALEMAN Visit ID: [id number] 66y, F Weight: 87.9 kg Height/Length: 62 in BMI: 35.5 ALLERGIES: Darvon, Morphine Sulfate, Shrimp Given 20:49 06/23/2016 Norma Coelho RJose C Medication Administered: METOPROLOL [PO], Dose: 25 mg Capsules PO. Medication Ordered: Metoprolol PO 25 mg (HIGH ALERT MEDICATION, NOW).
--- NOTE | 2016-06-23 22:40 | ED DISCHARGE INSTRUCTIONS ---
Patient: JAS ALEMAN General Instructions [facility] VisitID: [id number] [address], [place] [id number] 66y, F Registration Date/Time: 06/23/2016 Chest pain characterized as "pressure" .12 lead EKG performed. New onset paroxysmal supraventricular tachycardia. INSTRUCTIONS (Your labs look good tonight. There is no evidence of heart attack today; however, it is possible you have angina, which is a precursor to a heart attack. As such it is very important that you follow up withDr. Lisa tomorrow to have a stress test scheduled. You have also been found to have short runs of SVT. If you continue to have frequent runs of SVT, you may need to see a manager human capital to determine why this is become a problem and whether anything further is to be done about it. At this point in time, if you're having multiple episodes of SVT, or longer lasting episodes, you may take a dose of metoprolol to help control this. If you have any further problems, more severe chest pain, or fast heartbeat that persists for more than 10 minutes he should come to the emergency department without delay.). Warnings: Further evaluation is necessary. It is very important to follow up with a physician. GENERAL WARNINGS: Return or contact your physician immediately if your condition worsens or changes unexpectedly, if not improving as expected, or if other problems arise. Your Current Medications: CONTINUE TAKING THE FOLLOWING MEDICATIONS: Aspirin Oral. Calcium + D Oral. Multivitamins Oral. Neurontin Oral. Omeprazole Oral. Simvastatin Oral. Prescription Medications: Metoprolol 25 mg: take 1-2 orally every 12 hours. Dispense thirty (30). No refills. (prn palpitations) Understanding of the discharge instructions verbalized by patient and family. Follow-up with: Hayes Lisa MD, [facility], , [address] [place], [id number] Follow up tomorrow. Call for an appointment. Reason for referral: Follow up ER visit for chest pain and fast heart beat. ADDITIONAL INFORMATION Chest Pain, Uncertain Cause Chest pain can happen for a number of reasons. Sometimes the cause can not be determined. If yourcondition does not seem serious, and your pain does not appear to be coming from your heart, your doctor may recommend watching it closely. Sometimes the signs of a serious problem take more time to appear. Therefore, watch for the warning signs listed below. Home care After your visit, follow these recommendations: Rest today and avoid strenuous activity. Take any prescribed medicine as directed. Follow-up care Follow up with your doctor or this facility as instructed or if you do not start to feel better within 24 hours. Call 911 Get immediate medical attention if any of the following occur: A change in the type of pain: if it feels different, becomes more severe, lasts longer, or begins to spread into your shoulder, arm, neck, jaw or back Shortness of breath or increased pain with breathing Weakness, dizziness, or fainting Rapid heart beat Get prompt medical attention Call your doctor right away if any of the following occur: Cough with dark colored sputum (phlegm) or blood Fever of 100.4F(38C) or higher, or as directed by your health care provider Swelling, pain or redness in one leg Tachycardia:P.A.T. (P.S.V.T.) P.A.T. stands for Paroxysmal Atrial Tachycardia (also called "P.S.V.T." or "Paroxysmal Supraventricular Tachycardia"). This means "sudden onset of fast heart beating." This may feel like your heart is racing or pounding. Because of the suddenness of onset, it is often scary but is usually not a dangerous condition. Episodes may last seconds, minutes or hours. This can occur in otherwise healthy persons who have used excessive amounts of stimulants such as tobacco or caffeine (coffee, tea, cola or medicines containing caffeine). Also certain empo-gmw-abrvqen cold & sinus remedies, as well as diet pills and some herbal supplements can over-stimulate the heart. Obviously, cocaine and amphetamine are the most powerful heart stimulants and must be avoided. Overactive thyroid and some types of heart valve disorders can also cause P.A.T. If your doctor suspects this, tests may be done to find out if this is the cause in your case. Home Care: 1) Rest today and resume your normal activities as soon as you are feeling back to normal. Sometimes a prolonged episode of P.A.T. can leave you feeling tired and weak for a while. 2) To prevent a recurrence, avoid ALL the stimulants mentioned above. If you have trouble eliminating coffee, switch to decaf. Smokers should make every effort to stop or at least switch to a filtered, low-nicotine type of cigarette while you look for a stop-smoking program. 3) If another episode of P.A.T. occurs, lie down and try to remain calm. These spells usually stop by themselves within a few minutes. Follow Up with your doctor within the week or as instructed by our staff. Get Prompt Medical Attention if any of the following occur: -- Chest, shoulder, arm, neck or back pain -- Shortness of breath -- Weakness -- Fainting or light-headedness -- Fast or pounding heartbeat that lasts over 20 minutes You have been given the following additional information: Chest Pain, Uncertain Cause Pat (P.A.T.) (Electronically signed by Magalie Joel MD 06/23/2016 21:51)
== END 2016-06-23 20:56 | disposition home or self-care (01) ==
LOC: ED SRH 16:57
DX: I47.1 Supraventricular tachycardia (principal); R07.89 Other chest pain; Z79.82 Long term (current) use of aspirin; Z88.5 Allergy status to narcotic agent; Z88.8 Allergy status to other drugs, medicaments and biological substances; Z91.013 Allergy to seafood; Z79.899 Other long term (current) drug therapy
CPT/HCPCS: 90004; 90100; 90616; 91556; 92610; 92720; 95059

== ENCOUNTER → 2016-07-16 | Outpatient (CLI) | payer MEDICARE ==
--- NOTE | 2016-07-21 14:12 | DIAGNOSTIC IMAGING REPORT ---
PROCEDURE: NM CARDIAC STRESS TEST REFERRING PHYSICIAN/PROVIDER: Hayes Lisa MD CONSULTING FRUIT I FARMWORKER: Clifford Gonsalves PROCEDURE PERFORMED: Single-day sestamibi CLINICAL INDICATIONS: Chest pain Stress PORTION: Please see separate report. SINGLE-DAY SESTAMIBI INTERPRETATION: 9 mCi of technetium-99m labeled sestamibi was injected at rest with SPECT tomography performed. Some time later the patient underwent Lexiscan stress with 29 mCi of technetium-99m labeled sestamibi injected 20 seconds after peak exercise with SPECT tomography performed. Rest and stress images were then compared. The LV was seen to be normal in size with an end diastolic volume of 46 mL and an end systolic volume of 8 mL. The LV with stress exhibits no ischemic defects. Computer assessed ejection fraction was 84% with normal contraction. COMPARISON: None IMPRESSION: 1. Normal myocardial perfusion. 2. Normal left ventricular size and systolic function. 3. These results suggest a low risk profile for major coronary ischemic events.
--- NOTE | 2016-07-21 14:12 | DIAGNOSTIC IMAGING REPORT ---
PROCEDURE: NM CARDIAC STRESS TEST REFERRING PHYSICIAN/PROVIDER: Hayes Lisa MD CONSULTING MANAGER COMPETITIVE INTELLIGENCE: Clifford Gonsalves PROCEDURE PERFORMED: Single-day sestamibi CLINICAL INDICATIONS: Chest pain Stress PORTION: Please see separate report. SINGLE-DAY SESTAMIBI INTERPRETATION: 9 mCi of technetium-99m labeled sestamibi was injected at rest with SPECT tomography performed. Some time later the patient underwent Lexiscan stress with 29 mCi of technetium-99m labeled sestamibi injected 20 seconds after peak exercise with SPECT tomography performed. Rest and stress images were then compared. The LV was seen to be normal in size with an end diastolic volume of 46 mL and an end systolic volume of 8 mL. The LV with stress exhibits no ischemic defects. Computer assessed ejection fraction was 84% with normal contraction. COMPARISON: None IMPRESSION: 1. Normal myocardial perfusion. 2. Normal left ventricular size and systolic function. 3. These results suggest a low risk profile for major coronary ischemic events.
== END ==
LOC: NM SRH 07-07 12:30
PROC: 4A02XM4 Measurement of Cardiac Total Activity, External Approach (ICD-10-PCS; principal; 2016-07-16)
DX: R07.9 Chest pain, unspecified (principal)